=== PATIENT | male | born 1960 | race Caucasian/White ===

== ENCOUNTER 2016-05-14 14:35 | Inpatient (IN) ==
[2016-05-14 16:00] LABS: Basophils # 0.1 K/mcL (0.0-0.2); Basophils % 0.9 %; Eosinophils # 0.1 K/mcL (0.0-0.6); Eosinophils % 1.6 %; Hematocrit 43.7 % (37.5-50.1); Hemoglobin 15.6 g/dL (12.9-16.9); Immature Granulocytes % 1.9 % (0-4); Lymphocytes # 1.4 K/mcL (0.6-4.6); Mean Corpuscular HGB Conc 35.7 g/dL (31.6-35.5); Mean Corpuscular Hemoglobin 29.1 pg (28.0-33.3); Mean Corpuscular Volume 81.5 fL (83.0-100.0); Mean Platelet Volume 10.6 fL (9.4-12.4); Monocytes # 0.5 K/mcL (0.0-1.3); Monocytes % 7.1 %; Neutrophils # 4.2 K/mcL (1.6-8.9); Platelet Count 333 K/mcL (140-400); Red Blood Count 5.36 M/mcL (4.19-5.50); Red Cell Distribution Width 12.9 % (11.5-14.5); Segmented Neutrophils % 66.5 %
[2016-05-14 16:06] LABS: INR 0.9; Prothrombin Time 10.1 Seconds (9.4-12.1)
[2016-05-14 16:07] LABS: Activated Partial Thrombo Time 29.8 Seconds (26.0-36.0)
--- NOTE | 2016-05-14 16:08 | Emergency Department Note ---
Disposition Clinical Impression: Hyperglycemia, Intractable pain Chest pain Qualifiers: Chest pain type: other chest pain Qualified Code(s): R07.89 - Other chest pain ; R07.8 - Other chest pain Disposition: Admitted As Inpatient Condition: Good Referrals: NO,PCP [Primary Care Provider] - Chest Pain HPI - General Chief Complaint: ED Chest Pain Stated Complaint: CP, JEFF Time Seen by Provider: 05/14/16 15:36 Source: patient Mode of arrival: ambulatory Limitations: no limitations Vital Signs Reviewed: Yes Nursing Notes Reviewed: Yes - History of Present Illness Pt complaint: chest pain Onset (ago): day(s) (3) Duration: constant Onset: during rest Pain Location: right chest Severity scale (1-10): 8 Quality: aching Pain Radiation: none Improves with: nothing Worsens with: nothing Context: recent illness Associated symptoms: Reports: dyspnea, cough. Denies: nausea, vomiting, diaphoresis Treatments prior to arrival chest pain: none - Related Data Home Medications Medication Instructions Recorded Confirmed Aspirin Enteric Coated [Aspirin EC] 81 mg PO DAILY 05/14/16 05/14/16 Allergies Allergy/AdvReac Type Severity Reaction Status Date / Time No Known Allergies Allergy Verified 05/14/16 14:50 Chest Pain PMH - Past Medical History Medical history: Reports: diabetes, hypertension, other Psychiatric history: Reports: no psych history - Social History Smoking Status: Never smoker Alcohol use: Reports: none Drug use: Reports: none Physical Exam - General Limitations: no limitations General appearance: alert - Head Head exam: atraumatic, normocephalic, normal inspection - Eye Eye exam: Present: normal appearance, PERRL, EOMI - Expanded Eye Exam Pupils: Left: reactive - ENT ENT exam: normal exam, normal oropharynx, mucous membranes moist - Expanded ENT Exam External ear exam: Present: normal external inspection Mouth exam: Present: normal external inspection Teeth exam: Present: normal inspection Throat exam: Present: normal inspection - Neck Neck exam: Present: normal inspection, full ROM, trachea midline - Chest Chest inspection: Present: normal inspection, symmetric chest wall rise - Respiratory Respiratory exam: Present: normal lung sounds bilaterally - Cardiovascular Cardiovascular exam: Present: regular rate, normal rhythm, normal heart sounds - Abdominal Exam Abdominal exam: Present: soft, Non-Tender. Absent: tenderness, distention, guarding, rebound, rigidity - Extremities Exam Extremities exam: Present: normal inspection, full ROM. Absent: tenderness, pedal edema - Expanded Upper Extremity Exam Shoulder exam: Present: normal inspection, full ROM Arm exam: Present: normal inspection, full ROM Elbow exam: Present: normal inspection, full ROM Forearm/Wrist exam: Present: normal inspection, full ROM Hand exam: Present: normal inspection, full ROM Vascular exam: Normal: capillary refill, radial pulse - Expanded Lower Extremity Exam Hip/Pelvis exam: Present: normal inspection, full ROM Upper leg exam: Present: normal inspection, full ROM Knee exam: Present: normal inspection, full ROM Lower leg exam: Present: normal inspection, full ROM Ankle exam: Present: normal inspection, full ROM Foot/toe exam: Present: normal inspection, full ROM Neurovascular/Tendon exam: Absent: motor deficit, sensory deficit, tendon deficit - Back Exam Back exam: Present: normal inspection, full ROM. Absent: tenderness - Neurological Exam Neurological exam: Present: alert, oriented X3 - Expanded Neurological Exam Patient oriented to: Present: person, place, time Coma Scale Eye Opening: Spontaneous Coma Scale Motor Response: Obeys Commands Coma Scale Verbal Response: Oriented Coma Scale Total: 15 - Psychiatric Psychiatric exam: Present: normal affect, normal mood - Skin Skin exam: Present: warm, dry, intact, normal color Course Vital Signs Temperature 97.2 F L 05/14/16 14:47 Pulse Rate 98 05/14/16 14:47 Respiratory Rate 18 05/14/16 14:47 Blood Pressure 153/109 05/14/16 14:47 O2 Sat by Pulse Oximetry 99 05/14/16 14:47 Temperature 97.2 F L 05/14/16 14:47 Pulse Rate 87 05/14/16 20:05 Respiratory Rate 16 05/14/16 20:05 Blood Pressure 128/78 05/14/16 20:05 O2 Sat by Pulse Oximetry 97 05/14/16 20:05 Oxygen Delivery Oxygen Delivery Room Air Chest Pain - MDM Narrative Medical decision making narrative: We did an extensive workup on the patient he has no signs of herpes zoster, negative CTA of the chest and abdomen, he still have an intense right sided chest pain with uncontrolled diabetes. We will place him on observation status continue to hydrate him we will start insulin here to control his blood sugar he will be admitted to the hospitalist service - Differential Diagnosis Likely: pneumothorax, stable angina, atypical chest pain, st elevation myocardial infraction, costalchondritis, chest pain - Medical Records Medical records reviewed: Yes I reviewed the patient's medical records. - Lab Data Lab results reviewed: Yes I reviewed the patient's lab results. Result diagrams: 05/14/16 15:52 05/14/16 15:52 Lab Results 05/14/16 05/14/16 05/14/16 Range/Units 15:52 15:52 15:52 WBC (4.3-11.1) K/mcL RBC (4.19-5.50) M/mcL Hgb (12.9-16.9) g/dL Hct (37.5-50.1) % MCV (83.0-100.0) fL MCH (28.0-33.3) pg MCHC (31.6-35.5) g/dL RDW (11.5-14.5) % Plt Count (140-400) K/mcL MPV (9.4-12.4) fL Immature Gran % (0-4) % Seg Neutrophils % % Lymphocytes % % Monocytes % % Eosinophils % % Basophils % % Neutrophils # (1.6-8.9) K/mcL Lymphocytes # (0.6-4.6) K/mcL Monocytes # (0.0-1.3) K/mcL Eosinophils # (0.0-0.6) K/mcL Basophils # (0.0-0.2) K/mcL PT 10.1 (9.4-12.1) Seconds INR 0.9 APTT 29.8 (26.0-36.0) Seconds VBG pH (7.32-7.42) pH Units VBG pCO2 (41-51) mmHg VBG pO2 (25-40) mmHg VBG HCO3 (21-27) mEq/L Sodium (136-145) mEq/L Potassium (3.5-4.5) mEq/L Chloride (98-109) mEq/L Carbon Dioxide (19-29) mEq/L BUN (8-26) mg/dL Creatinine (0.72-1.25) mg/dL Est GFR ( Amer) (> 60) Est GFR (Non-Af Amer) (> 60) BUN/Creatinine Ratio (6-26) Glucose (70-99) mg/dL Est Mean Plasma Glucose mg/dl Hemoglobin A1c ( - 5.6) % Calculated Osmolality (280-300) Calcium (8.6-10.8) mg/dL Total Bilirubin 0.6 (0.2-1.2) mg/dL Direct Bilirubin 0.2 (0.0-0.5) mg/dL Indirect Bilirubin 0.4 (0.0-1.2) mg/dL AST 93 H (5-34) Units/L ALT 123 H (0-55) Units/L Alkaline Phosphatase 154 H (38-126) Units/L Troponin I (0-0.03) ng/mL B-Natriuretic Peptide 21 (0-100) pg/mL Serum Total Protein 7.2 (6.0-8.3) g/dL Albumin 3.5 (3.5-5.0) g/dL Globulin 3.7 H (2.4-3.5) g/dL Albumin/Globulin Ratio 0.9 L (1.1-2.2) Lipase (8-78) Units/L Beta-Hydroxybutyric Acd (0.02-0.27) mmol/L 05/14/16 05/14/16 05/14/16 Range/Units 15:52 15:52 15:52 WBC 6.4 (4.3-11.1) K/mcL RBC 5.36 (4.19-5.50) M/mcL Hgb 15.6 (12.9-16.9) g/dL Hct 43.7 (37.5-50.1) % MCV 81.5 L (83.0-100.0) fL MCH 29.1 (28.0-33.3) pg MCHC 35.7 H (31.6-35.5) g/dL RDW 12.9 (11.5-14.5) % Plt Count 333 (140-400) K/mcL MPV 10.6 (9.4-12.4) fL Immature Gran % 1.9 (0-4) % Seg Neutrophils % 66.5 % Lymphocytes % 22.0 % Monocytes % 7.1 % Eosinophils % 1.6 % Basophils % 0.9 % Neutrophils # 4.2 (1.6-8.9) K/mcL Lymphocytes # 1.4 (0.6-4.6) K/mcL Monocytes # 0.5 (0.0-1.3) K/mcL Eosinophils # 0.1 (0.0-0.6) K/mcL Basophils # 0.1 (0.0-0.2) K/mcL PT (9.4-12.1) Seconds INR APTT (26.0-36.0) Seconds VBG pH (7.32-7.42) pH Units VBG pCO2 (41-51) mmHg VBG pO2 (25-40) mmHg VBG HCO3 (21-27) mEq/L Sodium 135 L (136-145) mEq/L Potassium 4.3 (3.5-4.5) mEq/L Chloride 103 (98-109) mEq/L Carbon Dioxide 22 (19-29) mEq/L BUN 13 (8-26) mg/dL Creatinine 0.90 (0.72-1.25) mg/dL Est GFR ( Amer) > 60 (> 60) Est GFR (Non-Af Amer) > 60 (> 60) BUN/Creatinine Ratio 14 (6-26) Glucose 357 H (70-99) mg/dL Est Mean Plasma Glucose mg/dl Hemoglobin A1c ( - 5.6) % Calculated Osmolality 294 (280-300) Calcium 9.3 (8.6-10.8) mg/dL Total Bilirubin (0.2-1.2) mg/dL Direct Bilirubin (0.0-0.5) mg/dL Indirect Bilirubin (0.0-1.2) mg/dL AST (5-34) Units/L ALT (0-55) Units/L Alkaline Phosphatase (38-126) Units/L Troponin I 0.01 (0-0.03) ng/mL B-Natriuretic Peptide (0-100) pg/mL Serum Total Protein (6.0-8.3) g/dL Albumin (3.5-5.0) g/dL Globulin (2.4-3.5) g/dL Albumin/Globulin Ratio (1.1-2.2) Lipase (8-78) Units/L Beta-Hydroxybutyric Acd (0.02-0.27) mmol/L 05/14/16 05/14/16 05/14/16 Range/Units 15:52 16:25 20:07 WBC (4.3-11.1) K/mcL RBC (4.19-5.50) M/mcL Hgb (12.9-16.9) g/dL Hct (37.5-50.1) % MCV (83.0-100.0) fL MCH (28.0-33.3) pg MCHC (31.6-35.5) g/dL RDW (11.5-14.5) % Plt Count (140-400) K/mcL MPV (9.4-12.4) fL Immature Gran % (0-4) % Seg Neutrophils % % Lymphocytes % % Monocytes % % Eosinophils % % Basophils % % Neutrophils # (1.6-8.9) K/mcL Lymphocytes # (0.6-4.6) K/mcL Monocytes # (0.0-1.3) K/mcL Eosinophils # (0.0-0.6) K/mcL Basophils # (0.0-0.2) K/mcL PT (9.4-12.1) Seconds INR APTT (26.0-36.0) Seconds VBG pH 7.35 (7.32-7.42) pH Units VBG pCO2 41 (41-51) mmHg VBG pO2 87 H (25-40) mmHg VBG HCO3 22.6 (21-27) mEq/L Sodium (136-145) mEq/L Potassium (3.5-4.5) mEq/L Chloride (98-109) mEq/L Carbon Dioxide (19-29) mEq/L BUN (8-26) mg/dL Creatinine (0.72-1.25) mg/dL Est GFR ( Amer) (> 60) Est GFR (Non-Af Amer) (> 60) BUN/Creatinine Ratio (6-26) Glucose (70-99) mg/dL Est Mean Plasma Glucose > 355 mg/dl Hemoglobin A1c >= 14.1 H ( - 5.6) % Calculated Osmolality (280-300) Calcium (8.6-10.8) mg/dL Total Bilirubin (0.2-1.2) mg/dL Direct Bilirubin (0.0-0.5) mg/dL Indirect Bilirubin (0.0-1.2) mg/dL AST (5-34) Units/L ALT (0-55) Units/L Alkaline Phosphatase (38-126) Units/L Troponin I (0-0.03) ng/mL B-Natriuretic Peptide (0-100) pg/mL Serum Total Protein (6.0-8.3) g/dL Albumin (3.5-5.0) g/dL Globulin (2.4-3.5) g/dL Albumin/Globulin Ratio (1.1-2.2) Lipase 52 (8-78) Units/L Beta-Hydroxybutyric Acd 1.41 H (0.02-0.27) mmol/L - Radiology Data Radiology results reviewed: Yes I reviewed the patient's radiology results.
[2016-05-14] MEDS ORDERED: Ondansetron 4 MG/2 ML VIAL IV ONE ×2 (16:10→18:12)
[2016-05-14] MEDS ORDERED: *HR* HYDROmorphone (PF) 1 MG/ML SYRINGE IV ONE ×2 (16:10→18:12)
[2016-05-14 16:30] LABS: BUN/Creatinine Ratio 14 (6-26); Blood Urea Nitrogen 13 mg/dL (8-26); Calcium 9.3 mg/dL (8.6-10.8); Carbon Dioxide 22 mEq/L (19-29); Chloride 103 mEq/L (98-109); Glucose 357 mg/dL (70-99); Osmolality,Calculated 294 (280-300); Potassium 4.3 mEq/L (3.5-4.5); Sodium 135 mEq/L (136-145); eGFR For African Americans > 60 (> 60); eGFR For Non-African Americans > 60 (> 60)
[2016-05-14 16:32] LABS: Albumin 3.5 g/dL (3.5-5.0); Albumin/Globulin Ratio 0.9 (1.1-2.2); Bilirubin,Direct 0.2 mg/dL (0.0-0.5); Bilirubin,Indirect 0.4 mg/dL (0.0-1.2); Bilirubin,Total 0.6 mg/dL (0.2-1.2); Globulin 3.7 g/dL (2.4-3.5); Total Protein 7.2 g/dL (6.0-8.3)
[2016-05-14 17:48] LABS: Estimated Average Glucose > 355 mg/dl; Hemoglobin A1C >= 14.1 %
[2016-05-14] MEDS ORDERED: Ketorolac 30 MG/ML VIAL IVP ONE (18:12)
[2016-05-14] MEDS ORDERED: 0.9 % Sodium Chloride 1,000 ML IVC ONE ×2 (18:16→19:40)
[2016-05-14] MEDS ORDERED: Insulin LISPRO 300 UNITS/3 ML VIAL SQ STA (19:41)
[2016-05-14 19:57] LABS: Beta-Hydroxybutyric Acid 1.41 mmol/L (0.02-0.27)
[2016-05-14 20:13] LABS: VBG HCO3 22.6 mEq/L (21-27); VBG PH 7.35 pH Units (7.32-7.42)
[2016-05-14 21:02] LABS: Bilirubin,Urine Small (Negative); Blood,Urine Negative (Negative); Clarity,Urine Clear (Clear); Color,Urine Yellow (Yellow); Glucose,Urine (UA) >=1000 mg/dL (Normal); Ketones,Urine 40 mg/dL (Negative); Leukocyte Esterase,Urine Negative (Negative); Nitrite,Urine Negative (Negative); Protein,Urine Negative (Neg-Trace); Urobilinogen,Urine Normal (Normal)
[2016-05-14 21:03] LABS: Specific Gravity,Urine >= 1.099 (1.010-1.025)
[2016-05-14] MEDS ORDERED: *HR* Promethazine 25 MG/ML VIAL IVP ONE (21:14)
[2016-05-14] MEDS ORDERED: *HR* HYDROmorphone (PF) 1 MG/ML SYRINGE IVP ONE (21:14)
[2016-05-14] MEDS ORDERED: Ondansetron 4 MG/2 ML VIAL IVP PRN (21:33)
[2016-05-14] MEDS ORDERED: Ketorolac 30 MG/ML VIAL IVP PRN (21:33)
[2016-05-14] MEDS ORDERED: Naloxone 0.4 MG/ML INJ IVP PRN (21:33)
[2016-05-14] MEDS ORDERED: D5% in Water 1,000 ML IV PRN (21:51)
[2016-05-14] MEDS ORDERED: *HR* Dextrose 50 % in Water (Syg) 50 ML SYRINGE IVP PRN (21:51)
[2016-05-14] MEDS ORDERED: Dextrose Gel 15 GM PO PRN ×2 (21:51)
--- NOTE | 2016-05-14 22:05 | Internal Med History&Physical ---
<Renae Garay - Last Filed: 05/14/16 22:47> Date of Encounter: 05/14/16 Time of Encounter: 21:58 Assessment and Plan (1) Uncontrolled type 2 diabetes mellitus Current visit: Yes Status: Acute Patient reports he was diagnosed with type 2 diabetes, and was previously on Metformin, but stopped taking it on his own about 6 months ago. Patient's glucose was 357 and Hgb A1c was 14.1. Patient reports thirst and frequent urination. Patient with elevated ketones, but is not acidotic. He received 2L of fluid in ED. diabetic diet Check blood sugars Q4hr Sliding scale correction dose insulin Q4hr 0.9NS at 150mL/hr Can de-escalate timing of blood sugars and insulin to ACHS once blood sugar drops below 200. family life educator consulted. Patient will need to establish with a PCP for outpatient management of his diabetes. Qualifiers: Diabetes mellitus complication status: with hyperglycemia Diabetes mellitus long term care social worker insulin use: without jail use Qualified Code(s): E11.65 - Type 2 diabetes mellitus with hyperglycemia (2) Chest pain Current visit: Yes Status: Acute Patient presented with right sided chest pain described as constant, sharp and deep and located on right side of chest all the way around and through to his right back below his should blade. Onset was and has been worsening. There is no erythema or rash. Patient is tender to palpation on chest wall. Patient reports recent URI a few weeks ago, but states he was not coughing. CXR shows no acute abnormality CTA was negative for PE or acute abnormality, shows prominent calcified granuloma in superior right lobe. CT abdomen shows no acute abnormality. Differential includes costochondritis, pleurisy, hepatitis, low suspicion for ACS, but will rule out with serial troponins Pain control with PRN norco and dilaudid PRN zofran for nausea Qualifiers: Chest pain type: other chest pain Qualified Code(s): R07.89 - Other chest pain; R07.8 - Other chest pain (3) LFT elevation Current visit: Yes Status: Acute Patient with right chest pain, reporting yellow colored stool today. He has history of cholecystectomy, history of pancreatitis. LFTs found to be elevated with AST 93, ALT 123, and alk phos 154. Ptient not tender in RUQ on palpation. Will get hepatitis panel. (4) DVT prophylaxis Current visit: Yes Status: Acute Ambulate TID anti-embolic stockings Lovenox 40mg SQ daily Internal Medicine - H&P: HPI Chief complaint: right sided pain Admitted From: Emergency Dept Plans for Post Hospital Care: Home History of present illness: Mr. Gonzales is a 56 year old male with hypertension and diabetes who presented to the emergency department today with reports of right-sided pain. Pain is located from his right flank around to his right chest at approximately the nipple line. He describes the pain as sharp, constant, deep pain. He reports he had some Tramadol at home which she took over the weekend and seemed to relieve his pain. He reports his pain is also lessened by stretching his right arm over his head. Pain has progressively worsened since its onset. He denies any palpitations, headache, abdominal pain, diarrhea. He does report some nausea and some shortness of breath today. He also reports a yellow colored stool today. He denies any lightheadedness, dizziness, faint. Evaluation in the emergency department included chest x-ray which showed no acute abnormality. CTA showed no pulmonary embolism or acute abnormality, it showed a prominent calcified granuloma in the superior right lower lobe. CT of the abdomen showed no acute abnormality. Patient was noted to have elevated glucose of 357, A1c was measured at 14.1. Patient reported he was previously on metformin but stopped it 6 months ago. Troponin was negative at 0.01, BNP was negative at 21. LFTs were elevated with AST of 93, ALT of 123 and alkaline phosphatase of 154. He did have elevated ketones, blood was not acidotic. On exam, patient alert and oriented, in no acute distress. Heart had regular rate and rhythm, lungs are clear to auscultation bilaterally. Patient was tender to palpation in anterior lateral and posterior chest wall on the right. Abdomen was nontender with positive bowel sounds. Past Med Surg Social Fam HX - Past Medical History Medical history: diabetes, hypertension, other Psychiatric history: no psych history - Past Surgical History Surgical History: cholecystectomy - Social History Smoking Status: Never smoker Smokeless Tobacco Status: No Alcohol use: none Drug use: none - Family History Mother Living Status: Hx Family Cardiac Disorders: Yes Father Living Status: Hx Family Endocrine Disorder: Yes (diabetes) Internal Medicine - H&P: Meds Aspirin Enteric Coated [Aspirin EC] 81 mg PO DAILY 05/14/16 [History] Allergies No Known Allergies Allergy (Verified 05/14/16 14:50) All Systems PM: A 10-system review of systems was performed and is negative for pertinent findings except as documented above in the HPI. - Constitutional Constitutional: no chills, no fever(s), no night sweats - EENT Eyes: no change in vision, no discharge, no pain, no photophobia Ears: no ear discharge, no ear pain, no tinnitus Nose, mouth and throat: no dysphagia, no nasal discharge, no neck pain, no sore throat - Cardiovascular Cardiovascular ROS IM: chest pain (right sided), dyspnea, no diaphoresis, no lightheadedness, no palpitations, no syncope - Respiratory Respiratory: dyspnea, no cough, no wheezing, no excessive phlegm production - Gastrointestinal Gastrointestinal: change in stool character (yellow stool today), nausea, no abdominal pain, no diarrhea, no hematemesis, no hematochezia, no melena, no vomiting - Musculoskeletal Musculoskeletal ROS IM: no numbness, no tingling - Integumentary Integumentary IM: no rash, no unusual bruising - Neurological Neurological ROS: no confusion, no convulsions, no focal weakness, no numbness, no tingling, no tremor(s) - Hematologic/Lymphatic Hematologic/Lymphatic: no easy bruising - Constitutional Vitals: Temp Pulse Resp BP Pulse Ox 97.2 F L 95 18 0/0 100 05/14/16 14:47 05/14/16 21:26 05/14/16 21:34 05/14/16 21:34 05/14/16 21:26 General appearance: Present: A&O X 3, no acute distress - Head Head exam: Present: atraumatic, normocephalic - Eye Eye exam: Present: PERRL, conjuntiva pink, sclera anicteric Pupils: Present: PERRL - Neck Neck exam general surgery: Present: supple, trachea midline. Absent: lymphadenopathy - Respiratory Respiratory exam: Present: chest wall tenderness (right anterior, lateral and flank), CTAB. Absent: accessory muscle use, rales, rhonchi, wheezes - Cardiovascular Cardiovascular exam: Present: RRR, +S1, +S2. Absent: diastolic murmur, gallop, rubs, systolic murmur - GI/Abdominal GI/Abdominal exam: Present: normal bowel sounds, soft, no peritoneal signs. Absent: distended, tenderness - Extremities Exam Extremities exam: Present: warm, radial pulses palpable and symetrical. Absent : calf tenderness, cyanotic, pedal edema - Neurological Exam Neurological exam: Present: CN II-XII intact, oriented X3, no focal deficits. Absent: facial droop, speech deficit - Skin Skin exam: Present: dry, intact Internal Med - H&P Results - Labs CBC & Chem 7: 05/14/16 15:52 05/14/16 15:52 Labs: Urine 05/14/16 Range/Units 20:56 Urine Color Yellow (Yellow) Urine Clarity Clear (Clear) Urine pH 5.0 (5.0-8.0) pH Units Ur Specific [place] >= 1.099 H (1.010-1.025) Urine Protein Negative (Neg-Trace) mg/dL Urine Glucose (UA) >=1000 H (Normal) mg/dL All Lab Results (24 Hours) 05/14/16 05/14/16 05/14/16 Range/Units 15:52 15:52 15:52 WBC (4.3-11.1) K/mcL RBC (4.19-5.50) M/mcL Hgb (12.9-16.9) g/dL Hct (37.5-50.1) % MCV (83.0-100.0) fL MCH (28.0-33.3) pg MCHC (31.6-35.5) g/dL RDW (11.5-14.5) % Plt Count (140-400) K/mcL MPV (9.4-12.4) fL Immature Gran % (0-4) % Seg Neutrophils % % Lymphocytes % % Monocytes % % Eosinophils % % Basophils % % Neutrophils # (1.6-8.9) K/mcL Lymphocytes # (0.6-4.6) K/mcL Monocytes # (0.0-1.3) K/mcL Eosinophils # (0.0-0.6) K/mcL Basophils # (0.0-0.2) K/mcL PT 10.1 (9.4-12.1) Seconds INR 0.9 APTT 29.8 (26.0-36.0) Seconds VBG pH (7.32-7.42) pH Units VBG pCO2 (41-51) mmHg VBG pO2 (25-40) mmHg VBG HCO3 (21-27) mEq/L Sodium (136-145) mEq/L Potassium (3.5-4.5) mEq/L Chloride (98-109) mEq/L Carbon Dioxide (19-29) mEq/L BUN (8-26) mg/dL Creatinine (0.72-1.25) mg/dL Est GFR ( Amer) (> 60) Est GFR (Non-Af Amer) (> 60) BUN/Creatinine Ratio (6-26) Glucose (70-99) mg/dL Est Mean Plasma Glucose mg/dl Hemoglobin A1c ( - 5.6) % Calculated Osmolality (280-300) Calcium (8.6-10.8) mg/dL Total Bilirubin 0.6 (0.2-1.2) mg/dL Direct Bilirubin 0.2 (0.0-0.5) mg/dL Indirect Bilirubin 0.4 (0.0-1.2) mg/dL AST 93 H (5-34) Units/L ALT 123 H (0-55) Units/L Alkaline Phosphatase 154 H (38-126) Units/L Troponin I (0-0.03) ng/mL B-Natriuretic Peptide 21 (0-100) pg/mL Serum Total Protein 7.2 (6.0-8.3) g/dL Albumin 3.5 (3.5-5.0) g/dL Globulin 3.7 H (2.4-3.5) g/dL Albumin/Globulin Ratio 0.9 L (1.1-2.2) Lipase (8-78) Units/L Beta-Hydroxybutyric Acd (0.02-0.27) mmol/L Urine Color (Yellow) Urine Clarity (Clear) Urine pH (5.0-8.0) pH Units Ur Specific [place] (1.010-1.025) Urine Protein (Neg-Trace) mg/dL Urine Glucose (UA) (Normal) mg/dL Urine Ketones (Negative) mg/dL Urine Blood (Negative) Urine Nitrite (Negative) Urine Bilirubin (Negative) Urine Urobilinogen (Normal) mg/dL Ur Leukocyte Esterase (Negative) Ur Culture Indicated? (NO) 02/27/17 02/27/17 02/27/17 Range/Units 15:52 15:52 15:52 WBC 6.4 (4.3-11.1) K/mcL RBC 5.36 (4.19-5.50) M/mcL Hgb 15.6 (12.9-16.9) g/dL Hct 43.7 (37.5-50.1) % MCV 81.5 L (83.0-100.0) fL MCH 29.1 (28.0-33.3) pg MCHC 35.7 H (31.6-35.5) g/dL RDW 12.9 (11.5-14.5) % Plt Count 333 (140-400) K/mcL MPV 10.6 (9.4-12.4) fL Immature Gran % 1.9 (0-4) % Seg Neutrophils % 66.5 % Lymphocytes % 22.0 % Monocytes % 7.1 % Eosinophils % 1.6 % Basophils % 0.9 % Neutrophils # 4.2 (1.6-8.9) K/mcL Lymphocytes # 1.4 (0.6-4.6) K/mcL Monocytes # 0.5 (0.0-1.3) K/mcL Eosinophils # 0.1 (0.0-0.6) K/mcL Basophils # 0.1 (0.0-0.2) K/mcL PT (9.4-12.1) Seconds INR APTT (26.0-36.0) Seconds VBG pH (7.32-7.42) pH Units VBG pCO2 (41-51) mmHg VBG pO2 (25-40) mmHg VBG HCO3 (21-27) mEq/L Sodium 135 L (136-145) mEq/L Potassium 4.3 (3.5-4.5) mEq/L Chloride 103 (98-109) mEq/L Carbon Dioxide 22 (19-29) mEq/L BUN 13 (8-26) mg/dL Creatinine 0.90 (0.72-1.25) mg/dL Est GFR ( Amer) > 60 (> 60) Est GFR (Non-Af Amer) > 60 (> 60) BUN/Creatinine Ratio 14 (6-26) Glucose 357 H (70-99) mg/dL Est Mean Plasma Glucose mg/dl Hemoglobin A1c ( - 5.6) % Calculated Osmolality 294 (280-300) Calcium 9.3 (8.6-10.8) mg/dL Total Bilirubin (0.2-1.2) mg/dL Direct Bilirubin (0.0-0.5) mg/dL Indirect Bilirubin (0.0-1.2) mg/dL AST (5-34) Units/L ALT (0-55) Units/L Alkaline Phosphatase (38-126) Units/L Troponin I 0.01 (0-0.03) ng/mL B-Natriuretic Peptide (0-100) pg/mL Serum Total Protein (6.0-8.3) g/dL Albumin (3.5-5.0) g/dL Globulin (2.4-3.5) g/dL Albumin/Globulin Ratio (1.1-2.2) Lipase (8-78) Units/L Beta-Hydroxybutyric Acd (0.02-0.27) mmol/L Urine Color (Yellow) Urine Clarity (Clear) Urine pH (5.0-8.0) pH Units Ur Specific [place] (1.010-1.025) Urine Protein (Neg-Trace) mg/dL Urine Glucose (UA) (Normal) mg/dL Urine Ketones (Negative) mg/dL Urine Blood (Negative) Urine Nitrite (Negative) Urine Bilirubin (Negative) Urine Urobilinogen (Normal) mg/dL Ur Leukocyte Esterase (Negative) Ur Culture Indicated? (NO) 05/14/16 05/14/16 05/14/16 Range/Units 15:52 16:25 20:07 WBC (4.3-11.1) K/mcL RBC (4.19-5.50) M/mcL Hgb (12.9-16.9) g/dL Hct (37.5-50.1) % MCV (83.0-100.0) fL MCH (28.0-33.3) pg MCHC (31.6-35.5) g/dL RDW (11.5-14.5) % Plt Count (140-400) K/mcL MPV (9.4-12.4) fL Immature Gran % (0-4) % Seg Neutrophils % % Lymphocytes % % Monocytes % % Eosinophils % % Basophils % % Neutrophils # (1.6-8.9) K/mcL Lymphocytes # (0.6-4.6) K/mcL Monocytes # (0.0-1.3) K/mcL Eosinophils # (0.0-0.6) K/mcL Basophils # (0.0-0.2) K/mcL PT (9.4-12.1) Seconds INR APTT (26.0-36.0) Seconds VBG pH 7.35 (7.32-7.42) pH Units VBG pCO2 41 (41-51) mmHg VBG pO2 87 H (25-40) mmHg VBG HCO3 22.6 (21-27) mEq/L Sodium (136-145) mEq/L Potassium (3.5-4.5) mEq/L Chloride (98-109) mEq/L Carbon Dioxide (19-29) mEq/L BUN (8-26) mg/dL Creatinine (0.72-1.25) mg/dL Est GFR ( Amer) (> 60) Est GFR (Non-Af Amer) (> 60) BUN/Creatinine Ratio (6-26) Glucose (70-99) mg/dL Est Mean Plasma Glucose > 355 mg/dl Hemoglobin A1c >= 14.1 H ( - 5.6) % Calculated Osmolality (280-300) Calcium (8.6-10.8) mg/dL Total Bilirubin (0.2-1.2) mg/dL Direct Bilirubin (0.0-0.5) mg/dL Indirect Bilirubin (0.0-1.2) mg/dL AST (5-34) Units/L ALT (0-55) Units/L Alkaline Phosphatase (38-126) Units/L Troponin I (0-0.03) ng/mL B-Natriuretic Peptide (0-100) pg/mL Serum Total Protein (6.0-8.3) g/dL Albumin (3.5-5.0) g/dL Globulin (2.4-3.5) g/dL Albumin/Globulin Ratio (1.1-2.2) Lipase 52 (8-78) Units/L Beta-Hydroxybutyric Acd 1.41 H (0.02-0.27) mmol/L Urine Color (Yellow) Urine Clarity (Clear) Urine pH (5.0-8.0) pH Units Ur Specific [place] (1.010-1.025) Urine Protein (Neg-Trace) mg/dL Urine Glucose (UA) (Normal) mg/dL Urine Ketones (Negative) mg/dL Urine Blood (Negative) Urine Nitrite (Negative) Urine Bilirubin (Negative) Urine Urobilinogen (Normal) mg/dL Ur Leukocyte Esterase (Negative) Ur Culture Indicated? (NO) 05/14/16 Range/Units 20:56 WBC (4.3-11.1) K/mcL RBC (4.19-5.50) M/mcL Hgb (12.9-16.9) g/dL Hct (37.5-50.1) % MCV (83.0-100.0) fL MCH (28.0-33.3) pg MCHC (31.6-35.5) g/dL RDW (11.5-14.5) % Plt Count (140-400) K/mcL MPV (9.4-12.4) fL Immature Gran % (0-4) % Seg Neutrophils % % Lymphocytes % % Monocytes % % Eosinophils % % Basophils % % Neutrophils # (1.6-8.9) K/mcL Lymphocytes # (0.6-4.6) K/mcL Monocytes # (0.0-1.3) K/mcL Eosinophils # (0.0-0.6) K/mcL Basophils # (0.0-0.2) K/mcL PT (9.4-12.1) Seconds INR APTT (26.0-36.0) Seconds VBG pH (7.32-7.42) pH Units VBG pCO2 (41-51) mmHg VBG pO2 (25-40) mmHg VBG HCO3 (21-27) mEq/L Sodium (136-145) mEq/L Potassium (3.5-4.5) mEq/L Chloride (98-109) mEq/L Carbon Dioxide (19-29) mEq/L BUN (8-26) mg/dL Creatinine (0.72-1.25) mg/dL Est GFR ( Amer) (> 60) Est GFR (Non-Af Amer) (> 60) BUN/Creatinine Ratio (6-26) Glucose (70-99) mg/dL Est Mean Plasma Glucose mg/dl Hemoglobin A1c ( - 5.6) % Calculated Osmolality (280-300) Calcium (8.6-10.8) mg/dL Total Bilirubin (0.2-1.2) mg/dL Direct Bilirubin (0.0-0.5) mg/dL Indirect Bilirubin (0.0-1.2) mg/dL AST (5-34) Units/L ALT (0-55) Units/L Alkaline Phosphatase (38-126) Units/L Troponin I (0-0.03) ng/mL B-Natriuretic Peptide (0-100) pg/mL Serum Total Protein (6.0-8.3) g/dL Albumin (3.5-5.0) g/dL Globulin (2.4-3.5) g/dL Albumin/Globulin Ratio (1.1-2.2) Lipase (8-78) Units/L Beta-Hydroxybutyric Acd (0.02-0.27) mmol/L Urine Color Yellow (Yellow) Urine Clarity Clear (Clear) Urine pH 5.0 (5.0-8.0) pH Units Ur Specific [place] >= 1.099 H (1.010-1.025) Urine Protein Negative (Neg-Trace) mg/dL Urine Glucose (UA) >=1000 H (Normal) mg/dL Urine Ketones 40 H (Negative) mg/dL Urine Blood Negative (Negative) Urine Nitrite Negative (Negative) Urine Bilirubin Small H (Negative) Urine Urobilinogen Normal (Normal) mg/dL Ur Leukocyte Esterase Negative (Negative) Ur Culture Indicated? NO (NO) <Buzz Garcia R - Last Filed: 05/15/16 04:51> Date of Encounter: 05/14/16 Internal Medicine - H&P: HPI History of present illness: Mr. Gonzales is a 56 year old male All Systems PM: A 10-system review of systems was performed and is negative for pertinent findings except as documented above in the HPI. - Constitutional Vitals: Temp Pulse Resp BP Pulse Ox 97.8 F 83 14 157/85 98 05/15/16 03:43 05/15/16 03:43 05/15/16 03:43 05/15/16 03:43 05/15/16 03:43 Internal Med - H&P Results - Labs CBC & Chem 7: 05/14/16 15:52 05/14/16 15:52 Labs: Cardiac Enzymes 05/14/16 Range/Units 21:55 Troponin I 0.01 (0-0.03) ng/mL Urine 05/14/16 Range/Units 20:56 Urine Color Yellow (Yellow) Urine Clarity Clear (Clear) Urine pH 5.0 (5.0-8.0) pH Units Ur Specific [place] >= 1.099 H (1.010-1.025) Urine Protein Negative (Neg-Trace) mg/dL Urine Glucose (UA) >=1000 H (Normal) mg/dL - Attending Attestation I examined this patient and my medical decision-making was reviewed with the FRAME CHANGER/ Advanced Practice Nurse. I agree with the documented findings, disposition and treatment plan as described except to the extent set forth below. 56-year-old male with history of diabetes and hypertension, presents with four- day history of worsening right chest pain, going from the back to the front. been severe tonight and hence presented to the er. Worse with deep breath. No questions, cough or expectoration. Had yellow colored stool today. Labs showed a transaminitis, hyperglycemia with hemoglobin A1c of 14.1%. Urinalysis is negative for leukocyte esterase and nitrates. CTA showed no pulmonary embolism or acute abnormality, it showed a prominent calcified granuloma in the superior right lower lobe. CT of the abdomen showed no acute abnormality. O/E: Lungs clear to auscultation. Abdomen soft and nontender. No skin rash on the right side of chest. A/P: - Transaminitis: check for viral hepatitis panel. Consider GI consult. - Right sided pleruritic chest pain: No e/o PE. Troponin negative. - Uncontrolled DM with A1C of 14.1%. oral hypoglycemics versus insulin at discharge.
[2016-05-14] MEDS: 0.9 % Sodium Chloride 1,000 ML IVC SCH (23:09)
[2016-05-14] MEDS: *HR* HYDROmorphone (PF) 1 MG/ML SYRINGE IVP PRN (23:09)
[2016-05-15] MEDS: Insulin LISPRO 300 UNITS/3 ML VIAL SQ SCH ×7 (00:05→20:58)
[2016-05-15] MEDS: *HR* HYDROcodone/Acet 5/325 mg TABLET PO PRN ×2 (02:11→08:14)
[2016-05-15] MEDS: *HR* HYDROmorphone (PF) 1 MG/ML SYRINGE IVP PRN ×4 (04:12→23:10)
[2016-05-15 04:51] LABS: Basophils % 0.5 %; Eosinophils # 0.1 K/mcL (0.0-0.6); Eosinophils % 0.9 %; Hematocrit 41.1 % (37.5-50.1); Hemoglobin 14.2 g/dL (12.9-16.9); Lymphocytes # 1.2 K/mcL (0.6-4.6); Lymphocytes % 21.4 %; Mean Corpuscular HGB Conc 34.5 g/dL (31.6-35.5); Mean Corpuscular Hemoglobin 28.7 pg (28.0-33.3); Mean Corpuscular Volume 83.2 fL (83.0-100.0); Mean Platelet Volume 10.4 fL (9.4-12.4); Monocytes # 0.6 K/mcL (0.0-1.3); Monocytes % 10.7 %; Neutrophils # 3.6 K/mcL (1.6-8.9); Platelet Count 300 K/mcL (140-400); Red Blood Count 4.94 M/mcL (4.19-5.50); Red Cell Distribution Width 13.2 % (11.5-14.5); Segmented Neutrophils % 64.5 %
[2016-05-15 05:06] LABS: BUN/Creatinine Ratio 20 (6-26); Blood Urea Nitrogen 15 mg/dL (8-26); Calcium 8.4 mg/dL (8.6-10.8); Carbon Dioxide 22 mEq/L (19-29); Chloride 106 mEq/L (98-109); Glucose 195 mg/dL (70-99); Osmolality,Calculated 292 (280-300); Potassium 3.6 mEq/L (3.5-4.5); Sodium 138 mEq/L (136-145); eGFR For African Americans > 60 (> 60); eGFR For Non-African Americans > 60 (> 60)
[2016-05-15 05:29] LABS: Hepatitis A Antibody IgM Nonreactive (Nonreactive); Hepatitis B Core IgM Nonreactive (Nonreactive); Hepatitis B Surface Antigen Nonreactive (Nonreactive); Hepatitis C Virus Antibody Nonreactive (Nonreactive)
[2016-05-15] MEDS: 0.9 % Sodium Chloride 1,000 ML IVC SCH ×3 (05:47→19:31)
[2016-05-15] MEDS: *HR* Enoxaparin 40 MG/0.4 ML SYRINGE SQ SCH (05:48)
[2016-05-15] MEDS: Aspirin Enteric Coated 81 MG Tablet PO SCH (08:14)
--- NOTE | 2016-05-15 09:40 | Internal Med Progress Note ---
Date of Encounter: 05/15/16 Time of Encounter: 08:45 - Assessment and plan (1) Chest pain Current Visit: Yes Status: Acute Assessment and plan: Patient complaining of severe right-sided chest pain radiating to his right upper back. Chest x-ray unremarkable. Chest CTA negative for acute processes. Abdominal CT negative. Urinalysis negative. Hepatitis panel negative. Mild transaminitis noted, will continue IV fluids and pain and nausea medication control. Chest pain is reproducible with palpation. Patient stating his pain feels similar to when he had acute pancreatitis many years ago. Troponins negative 3, low suspicion for ACS. ITS Impressions Chest X-Ray 05/14/16 15:37 IMPRESSION: No acute abnormality. D/ / Homer Betts MD / Homer Betts MD Interpreting Provider: Homer Betts MD Chest CTA 05/14/16 16:40 IMPRESSION: No evidence of pulmonary embolism or acute pulmonary abnormality. D/ / Fabio Carrillo MD / Fabio Carrillo MD Interpreting Provider: aFbio Carrillo MD Abdomen/Pelvis CT 05/14/16 18:16 IMPRESSION: No acute intra-abdominal or intrapelvic abnormality. Diverticulosis without evidence of diverticulitis. D/ / Luz Marina Adan MD / Luz Marina Adan MD Interpreting Provider: Luz Marina Adan MD (2) Intractable pain Current Visit: Yes Status: Acute (3) Transaminitis Current Visit: Yes Status: Acute (4) HTN (hypertension) Current Visit: Yes Status: Acute Assessment and plan: Suspect chronic, patient does not know if he was supposed to be on any medications for his hypertension, will initiate lisinopril and monitor (5) Noncompliance with medication regimen Current Visit: Yes Status: Acute Assessment and plan: Patient stating he stopped taking all of his medications approximately 6 months ago. He has not seen a primary care provider for at least 8 months. He states he had heard bad things about his medications so he stopped taking them. He is also unintentionally lost 20 pounds over the past several months. (6) DVT prophylaxis Current Visit: Yes Status: Acute Assessment and plan: Subcutaneous Lovenox (7) Uncontrolled type 2 diabetes mellitus Current Visit: Yes Status: Chronic Assessment and plan: patient stating he was on Metformin, but had heard some bad things about it, so he stopped taking it approximately 6 months ago. A1C>14.1%. DM educator onboard. He does not currently have a PCP. May need to initiate insulin, will continue to educate him and decide plan of care over next several days. - Subjective Interval history: Patient seen and examined. On examination, patient resting supine in bed. Patient complaining of severe pain to the right side of his chest radiating to his right upper back. Patient is also endorsing severe nausea but no vomiting. His is concerned as the patient stopped taking all of his medications on his own 6 months ago and has lost 20 pounds since that time. - Constitutional Vitals: Temp Pulse Resp BP Pulse Ox 97.8 F 86 16 145/84 98 05/15/16 07:03 05/15/16 07:03 05/15/16 07:03 05/15/16 07:03 05/15/16 07:03 General appearance: Present: mild distress (2/2 pain), A&O X 3, no acute distress, answers questions appropriately - Head Head exam: Present: atraumatic, normocephalic - Eye Eye exam: Present: PERRL, conjuntiva pink, sclera anicteric Pupils: Present: PERRL - Neck Neck exam general surgery: Present: supple, trachea midline. Absent: lymphadenopathy - Respiratory Respiratory exam: Present: chest wall tenderness, decreased breath sounds ( Shallow breaths secondary to pain). Absent: accessory muscle use, rales, respiratory distress, rhonchi, wheezes - Cardiovascular Cardiovascular exam: Present: RRR, +S1, +S2. Absent: diastolic murmur, gallop, rubs, systolic murmur - GI/Abdominal GI/Abdominal exam: Present: normal bowel sounds, soft, tenderness (RUQ/ Epipgastric), no peritoneal signs. Absent: distended - Extremities Exam Extremities exam: Present: warm, radial pulses palpable and symetrical. Absent : calf tenderness, cyanotic, pedal edema - Neurological Exam Neurological exam: Present: alert, CN II-XII intact, oriented X3, no focal deficits, strengths equal and symetr throughout. Absent: pronater drift, facial droop, speech deficit - Skin Skin exam: Present: dry, intact, pallor, warm Internal Medicine: Result - Labs CBC & Chem 7: 05/15/16 04:06 05/15/16 04:06 Labs: Short CBC 05/15/16 Range/Units 04:06 WBC 5.5 (4.3-11.1) K/mcL Hgb 14.2 (12.9-16.9) g/dL Hct 41.1 (37.5-50.1) % Plt Count 300 (140-400) K/mcL Neutrophils # 3.6 (1.6-8.9) K/mcL BMP 05/15/16 04:06 Sodium 138 Potassium 3.6 Chloride 106 Carbon Dioxide 22 BUN 15 Creatinine 0.76 Glucose 195 H Calcium 8.4 L Cardiac Enzymes 05/14/16 05/15/16 Range/Units 21:55 04:06 Troponin I 0.01 0.01 (0-0.03) ng/mL Urine 05/14/16 Range/Units 20:56 Urine Color Yellow (Yellow) Urine Clarity Clear (Clear) Urine pH 5.0 (5.0-8.0) pH Units Ur Specific [place] >= 1.099 H (1.010-1.025) Urine Protein Negative (Neg-Trace) mg/dL Urine Glucose (UA) >=1000 H (Normal) mg/dL - ABG Interpretation ABG results: PT/INR, D-dimer PT 10.1 Seconds (9.4-12.1) 05/14/16 15:52 Consult Discharge Plan - Plan
[2016-05-15] MEDS: Ondansetron 4 MG/2 ML VIAL IVP PRN ×3 (12:31→23:10)
--- NOTE | 2016-05-15 16:18 | Electrocardiograph Report ---
[place] [id number] Test Date: 2016-05-14 Pat Name: Feliz Gonzales Department: 102 Room: 3B16 Gender: M [employer] Supervisor: : [id number] Requested By: Brendan Romeo Order Number: [id number] Reading MD: Kamar Alva Measurements Intervals [place] Rate: 80 P: 32 RI: 141 QRS: -12 QRSD: 85 T: 10 QT: 362 QTc: 398 Interpretive Statements SINUS RHYTHM Electronically Signed On 05-15-2016 16:16:40 EST by Kamar Alva
[2016-05-15] MEDS: *HR* Promethazine 25 MG/ML VIAL IVP PRN (19:31)
[2016-05-16] MEDS: *HR* Promethazine 25 MG/ML VIAL IVP PRN ×3 (03:33→20:42)
[2016-05-16] MEDS: *HR* HYDROmorphone (PF) 1 MG/ML SYRINGE IVP PRN ×5 (03:33→20:41)
[2016-05-16] MEDS: 0.9 % Sodium Chloride 1,000 ML IVC SCH ×3 (03:34→18:33)
[2016-05-16 05:36] LABS: Albumin 2.9 g/dL (3.5-5.0); Albumin/Globulin Ratio 0.9 (1.1-2.2); Bilirubin,Direct 0.4 mg/dL (0.0-0.5); Bilirubin,Indirect 0.5 mg/dL (0.0-1.2); Bilirubin,Total 0.9 mg/dL (0.2-1.2); Globulin 3.2 g/dL (2.4-3.5); Total Protein 6.1 g/dL (6.0-8.3)
[2016-05-16] MEDS: *HR* Enoxaparin 40 MG/0.4 ML SYRINGE SQ SCH (06:13)
[2016-05-16] MEDS: Ondansetron 4 MG/2 ML VIAL IVP PRN ×2 (07:51→17:36)
[2016-05-16] MEDS: Aspirin Enteric Coated 81 MG Tablet PO SCH (07:52)
[2016-05-16] MEDS: Insulin LISPRO 300 UNITS/3 ML VIAL SQ SCH ×5 (07:53→20:43)
[2016-05-16] MEDS ORDERED: Cosyntropin 250 MCG/2 ML VIAL IVP ONE (08:17)
--- NOTE | 2016-05-16 11:55 | Gastroenterology Consult Note ---
<Kai García - Last Filed: 05/16/16 11:50> Date of Encounter: 05/16/16 Time of Encounter: 10:30 - Assessment and plan (1) Chest pain Current Visit: Yes Status: Acute Assessment and plan: Right sided chest pain. Chest CTA, CXR, and CT A/P were negative. Qualifiers: Chest pain type: other chest pain Qualified Code(s): R07.89 - Other chest pain; R07.8 - Other chest pain (2) LFT elevation Current Visit: Yes Status: Acute Assessment and plan: TB normal at 0.9. AST 395, ALT 565, alk phos 282. Hepatitis profile negative. CT A/P negative. Complete MRCP. (3) Noncompliance with medication regimen Current Visit: Yes Status: Acute (4) Uncontrolled type 2 diabetes mellitus Current Visit: Yes Status: Chronic Qualifiers: Diabetes mellitus complication status: with hyperglycemia Diabetes mellitus exterminator helper termite insulin use: without long-term use Qualified Code(s): E11.65 - Type 2 diabetes mellitus with hyperglycemia - Time Spent With Patient Total time spent is greater than 50% in coordination of care (as documented) at patient's floor/unit and/or counseling patient: GI History of Present Illness - Data of Consult Patient: new to practice Consult date: 05/16/16 Requesting Physician: Chika Carson - Consult Narrative Reason for consult: Increased LFT, RUQ pain History of present illness: Mr. Gonzales is a 56 year old male with PMHx of HTN and DM who presented to the ED with right-sided flank pain from axilla to bottom of ribs, described as sharp. Stretching his right arm over his head and Tramadol improved the pain. He denies headaches, palpitations, abdominal pain, diarrhea, melena, or hematochezia. CXR, CT A/P, CTA showed no acute abnormality. Troponins negative x 3. LFTs were elevate on admission with AST 93, ALT 123, and alk phos 154. Today, AST 395, ALT 565, and alk phos 282. Procedures: Colonoscopy 04/25/2010 Dr. Roblero with diverticulosis in the sigmoid colon. EGD 04/25/2010 Dr. Roblero as gastritis EGD 03/06/2010 Dr. Roblero medium-size ulcerating mass with no bleeding and with no stigmata of recent bleeding were found in the lower third of the esophagus, pathology with Ortiz's esophagus. NSAIDs: ASA Anticoagulation: None Past Med Surg Social Fam HX - Past Medical History Medical history: diabetes, hypertension, other Psychiatric history: no psych history - Past Surgical History Surgical History: cholecystectomy - Social History Smoking Status: Never smoker Smokeless Tobacco Status: No Alcohol use: none Drug use: none - Family History Father Living Status: Hx Family Cardiac Disorders: Yes (heart valve) Hx Family Endocrine Disorder: Yes (diabetes) Mother Living Status: Hx Family Cardiac Disorders: Yes - Gastrointestinal Gastrointestinal: Present: as per HPI - Constitutional Constitutional: as per HPI - EENT Eyes: as per HPI Ears: Present: as per HPI Nose, mouth and throat: Present: as per HPI - Cardiovascular Cardiovascular ROS: Present: as per HPI - Respiratory Respiratory IM: Present: as per HPI - Genitourinary Genitourinary: Absent: change in color, Urinary frequency - Neurological ROS Neurological GI: Present: as per HPI - Hematologic/Lymphatic Hematologic/Lymphatic pediatric: Present: as per HPI - Musculoskeletal Musculoskeletal ROS GI: Present: as per HPI - Integumentary Integumentary GI: Present: as per HPI - Psychiatric ROS Psychiatric GI: Present: as per HPI - Endocrine Endocrine IM: Present: as per HPI - Constitutional Vitals: Temp Pulse Resp BP Pulse Ox 98.2 F 84 16 132/80 94 L 05/16/16 10:51 05/16/16 10:51 05/16/16 10:51 05/16/16 10:51 05/16/16 10:51 General appearance: Present: cooperative, A&O X 3, no acute distress, answers questions appropriately - Head Head exam: Present: atraumatic, normocephalic - Eye Eye exam: Present: normal appearance, sclera anicteric - ENT ENT exam: Present: mucous membranes moist - Neck Neck exam general surgery: Present: normal inspection, trachea midline - Respiratory Respiratory exam: Present: chest wall tenderness (right), CTAB. Absent: rales, rhonchi - Cardiovascular Cardiovascular exam: Present: RRR, +S1, +S2 - GI/Abdominal GI/Abdominal exam: Present: soft, no peritoneal signs. Absent: distended, firm , guarding, tenderness - Rectal Rectal exam: Present: deferred - Extremities Exam Extremities exam: Present: warm - Neurological Exam Neurological exam: Present: no focal deficits - Psychiatric Psychiatric exam: Present: normal affect, normal mood - Skin Skin exam: Present: dry, intact, normal color, warm Results - Labs CBC & Chem 7: 05/15/16 04:06 05/15/16 04:06 Labs: Last Result Calcium 8.4 mg/dL (8.6-10.8) L 05/15/16 04:06 Iron 76 mcg/dL (65-175) 05/16/16 09:20 % Saturation 22 % (20-55) 05/16/16 09:20 Transferrin 242 mg/dL (174-364) 05/16/16 09:20 Ferritin 380 ng/ml (22-275) H 05/16/16 09:20 Troponin I 0.01 ng/mL (0-0.03) 05/15/16 04:06 Triglycerides 285 mg/dL (< 150) H 05/16/16 04:09 Entire Visit Hgb 14.2 g/dL (12.9-16.9) 05/15/16 04:06 Hct 41.1 % (37.5-50.1) 05/15/16 04:06 PT 10.1 Seconds (9.4-12.1) 05/14/16 15:52 Ferritin 380 ng/ml (22-275) H 05/16/16 09:20 Total Bilirubin 0.9 mg/dL (0.2-1.2) 05/16/16 04:09 AST 395 Units/L (5-34) H 05/16/16 04:09 ALT 565 Units/L (0-55) H 05/16/16 04:09 Lipase 52 Units/L (8-78) 05/14/16 16:25 - ABG ABG results: PT/INR, D-dimer PT 10.1 Seconds (9.4-12.1) 05/14/16 15:52 Consult Discharge Plan - Plan Instructions: Magnetic Resonance Cholangiopancreatography (DC) Referrals: NO,PCP [Primary Care Provider] - <Godfrey Cabral - Last Filed: 05/16/16 21:07> Date of Encounter: 05/16/16 Time of Encounter: 17:30 - Time Spent With Patient Total time spent is greater than 50% in coordination of care (as documented) at patient's floor/unit and/or counseling patient: GI History of Present Illness - Data of Consult Requesting Physician: Chika Carson - Consult Narrative History of present illness: Mr. Gonzales is a 56 year old male - Constitutional Vitals: Temp Pulse Resp BP Pulse Ox 97.9 F 102 16 153/79 95 05/16/16 18:52 05/16/16 18:52 05/16/16 18:52 05/16/16 18:52 05/16/16 18:52 Results - Labs CBC & Chem 7: 05/15/16 04:06 05/15/16 04:06 Labs: Last Result Calcium 8.4 mg/dL (8.6-10.8) L 05/15/16 04:06 Iron 76 mcg/dL (65-175) 05/16/16 09:20 % Saturation 22 % (20-55) 05/16/16 09:20 Transferrin 242 mg/dL (174-364) 05/16/16 09:20 Ferritin 380 ng/ml (22-275) H 05/16/16 09:20 Troponin I 0.01 ng/mL (0-0.03) 05/15/16 04:06 Triglycerides 285 mg/dL (< 150) H 05/16/16 04:09 Entire Visit Hgb 14.2 g/dL (12.9-16.9) 05/15/16 04:06 Hct 41.1 % (37.5-50.1) 05/15/16 04:06 PT 10.1 Seconds (9.4-12.1) 05/14/16 15:52 Ferritin 380 ng/ml (22-275) H 05/16/16 09:20 Total Bilirubin 0.9 mg/dL (0.2-1.2) 05/16/16 04:09 AST 395 Units/L (5-34) H 05/16/16 04:09 ALT 565 Units/L (0-55) H 05/16/16 04:09 Lipase 52 Units/L (8-78) 05/14/16 16:25 - ABG ABG results: PT/INR, D-dimer PT 10.1 Seconds (9.4-12.1) 05/14/16 15:52 - Attending Attestation I examined this patient and my medical decision-making was reviewed with the BLUE LINE TRIMMER/PA/Advanced Practice Nurse/Resident Physician. I agree with the documented findings, disposition and treatment plan as described except to the extent set forth below. Pt sen RUQ pain most prob due to hepatitis. MRI/CT negtive, hep panel neg.
[2016-05-16 12:08] LABS: Thyroid Stimulating Hormone 1.299 mcIU/mL (0.350-4.840)
--- NOTE | 2016-05-16 12:10 | Internal Med Progress Note ---
Date of Encounter: 05/16/16 Time of Encounter: 09:30 - Assessment and plan (1) Chest pain Current Visit: Yes Status: Acute Assessment and plan: Patient complaining of severe right-sided chest pain radiating to his right upper back. Chest x-ray unremarkable. Chest CTA negative for acute processes. Abdominal CT negative. Urinalysis negative. Hepatitis panel negative. Transaminitis noted and trended up since admission. Unclear causation- lipase normal so less likely to be pancreatitis. Bilirubin normal. GI onboard- MRCP pending. Will continue with pain and nausea control- stool softener added as well. Troponins negative 3, low suspicion for ACS. ITS Impressions Chest X-Ray 05/14/16 15:37 IMPRESSION: No acute abnormality. D/ / Homer Betts MD / Homer Betts MD Interpreting Provider: Homer Betts MD Chest CTA 05/14/16 16:40 IMPRESSION: No evidence of pulmonary embolism or acute pulmonary abnormality. D/ / Fabio Carrillo MD / Fabio Carrillo MD Interpreting Provider: Fabio Carrillo MD Abdomen/Pelvis CT 05/14/16 18:16 IMPRESSION: No acute intra-abdominal or intrapelvic abnormality. Diverticulosis without evidence of diverticulitis. D/ / Luz Marina Adan MD / Luz Marina Adan MD Interpreting Provider: Luz Marina Adan MD (2) Intractable pain Current Visit: Yes Status: Acute (3) Transaminitis Current Visit: Yes Status: Acute (4) HTN (hypertension) Current Visit: Yes Status: Acute Assessment and plan: Suspect chronic, patient does not know if he was supposed to be on any medications for his hypertension, lisinopril was initiated yesterday however the patient remains hypertensive this morning so metoprolol was added to his regimen. We will continue to trend and adjust medications as indicated. Also addressing his severe pain. (5) Noncompliance with medication regimen Current Visit: Yes Status: Acute Assessment and plan: Patient stating he stopped taking all of his medications approximately 6 months ago. He has not seen a primary care provider for at least 8 months. He states he had heard bad things about his medications so he stopped taking them. He is also unintentionally lost 20 pounds over the past several months. (6) DVT prophylaxis Current Visit: Yes Status: Acute Assessment and plan: Subcutaneous Lovenox (7) Uncontrolled type 2 diabetes mellitus Current Visit: Yes Status: Chronic Assessment and plan: patient stating he was on Metformin, but had heard some bad things about it, so he stopped taking it approximately 6 months ago. A1C>14.1%. DM educator onboard. He does not currently have a PCP. May need to initiate insulin, will continue to educate him and decide plan of care over next several days. Glucoses are better controlled today, continue low-dose sliding scale - Subjective Interval history: Patient seen and examined. On examination, patient resting supine in bed. Patient continued to complain of severe right-sided chest pain radiating around to his back. He states it is knifelike in nature and states pain medicine has not been overtly effective and states he is trying to sleep more and more because his pain and nausea are severe. - Constitutional Vitals: Temp Pulse Resp BP Pulse Ox 98.2 F 84 16 132/80 94 L 05/16/16 10:51 05/16/16 10:51 05/16/16 10:51 05/16/16 10:51 05/16/16 10:51 General appearance: Present: mild distress (2/2 pain), A&O X 3, no acute distress, answers questions appropriately - Head Head exam: Present: atraumatic, normocephalic - Eye Eye exam: Present: PERRL, conjuntiva pink, sclera anicteric Pupils: Present: PERRL - Neck Neck exam general surgery: Present: supple, trachea midline. Absent: lymphadenopathy - Respiratory Respiratory exam: Present: chest wall tenderness. Absent: accessory muscle use , rales, respiratory distress, rhonchi, wheezes - Cardiovascular Cardiovascular exam: Present: RRR, +S1, +S2. Absent: diastolic murmur, gallop, rubs, systolic murmur - GI/Abdominal GI/Abdominal exam: Present: normal bowel sounds, soft, no peritoneal signs. Absent: distended, tenderness - Extremities Exam Extremities exam: Present: warm, radial pulses palpable and symetrical. Absent : calf tenderness, cyanotic, pedal edema - Neurological Exam Neurological exam: Present: alert, CN II-XII intact, oriented X3, no focal deficits, strengths equal and symetr throughout. Absent: pronater drift, facial droop, speech deficit - Skin Skin exam: Present: dry, intact, pallor, warm Internal Medicine: Result - Labs CBC & Chem 7: 05/15/16 04:06 05/15/16 04:06 Labs: Liver Function 05/16/16 Range/Units 09:20 GGT 691 H (12-64) Units/L - ABG Interpretation ABG results: PT/INR, D-dimer PT 10.1 Seconds (9.4-12.1) 05/14/16 15:52 Consult Discharge Plan - Plan Instructions: Magnetic Resonance Cholangiopancreatography (DC) Referrals: NO,PCP [Primary Care Provider] -
[2016-05-17] MEDS: Ondansetron 4 MG/2 ML VIAL IVP PRN (02:26)
[2016-05-17] MEDS: *HR* HYDROmorphone (PF) 1 MG/ML SYRINGE IVP PRN ×2 (02:26→06:41)
[2016-05-17] MEDS: 0.9 % Sodium Chloride 1,000 ML IVC SCH ×5 (02:27→23:00)
[2016-05-17 05:45] LABS: Basophils % 0.8 %; Eosinophils # 0.2 K/mcL (0.0-0.6); Eosinophils % 3.8 %; Hematocrit 40.1 % (37.5-50.1); Hemoglobin 13.1 g/dL (12.9-16.9); Immature Granulocytes % 1.7 % (0-4); Lymphocytes # 1.6 K/mcL (0.6-4.6); Mean Corpuscular HGB Conc 32.7 g/dL (31.6-35.5); Mean Corpuscular Hemoglobin 28.1 pg (28.0-33.3); Mean Corpuscular Volume 85.9 fL (83.0-100.0); Mean Platelet Volume 10.7 fL (9.4-12.4); Monocytes # 0.5 K/mcL (0.0-1.3); Monocytes % 9.6 %; Neutrophils # 2.4 K/mcL (1.6-8.9); Platelet Count 281 K/mcL (140-400); Red Blood Count 4.67 M/mcL (4.19-5.50); Red Cell Distribution Width 13.7 % (11.5-14.5); Segmented Neutrophils % 50.1 %
[2016-05-17 06:02] LABS: Alanine Aminotransferase 365 Units/L (0-55); Albumin 2.9 g/dL (3.5-5.0); Albumin/Globulin Ratio 0.9 (1.1-2.2); Alkaline Phosphatase 259 Units/L (38-126); Aspartate Amino Transferase 120 Units/L (5-34); BUN/Creatinine Ratio 10 (6-26); Bilirubin,Direct 0.2 mg/dL (0.0-0.5); Bilirubin,Indirect 0.5 mg/dL (0.0-1.2); Bilirubin,Total 0.7 mg/dL (0.2-1.2); Blood Urea Nitrogen 8 mg/dL (8-26); Calcium 8.5 mg/dL (8.6-10.8); Carbon Dioxide 21 mEq/L (19-29); Chloride 108 mEq/L (98-109); Globulin 3.2 g/dL (2.4-3.5); Glucose 286 mg/dL (70-99); Osmolality,Calculated 295 (280-300); Sodium 138 mEq/L (136-145); Total Protein 6.1 g/dL (6.0-8.3); eGFR For African Americans > 60 (> 60); eGFR For Non-African Americans > 60 (> 60)
[2016-05-17 06:18] LABS: Potassium 3.6 mEq/L (3.5-4.5)
[2016-05-17] MEDS: *HR* Enoxaparin 40 MG/0.4 ML SYRINGE SQ SCH (06:40)
[2016-05-17] MEDS: *HR* Promethazine 25 MG/ML VIAL IVP PRN (06:41)
[2016-05-17] MEDS: Aspirin Enteric Coated 81 MG Tablet PO SCH (08:12)
[2016-05-17] MEDS: Insulin LISPRO 300 UNITS/3 ML VIAL SQ SCH ×3 (08:15→16:45)
[2016-05-17] MEDS: *HR* HYDROcodone/Acet 5/325 mg TABLET PO PRN (09:58)
[2016-05-17] MEDS ORDERED: Insulin DETEMIR 100 UNIT/ML X5UNITS SQ SCH (12:08)
[2016-05-17] MEDS ORDERED: Insulin DETEMIR 100 UNIT/ML X5UNITS SQ ONE (12:21)
--- NOTE | 2016-05-17 13:02 | Internal Med Progress Note ---
Date of Encounter: 05/17/16 Time of Encounter: 12:48 - Assessment and plan (1) Uncontrolled type 2 diabetes mellitus Current Visit: Yes Status: Chronic Assessment and plan: Given persistent hyperglycemia and HbA1C>14, will start Levemir Since patient is insulin naive, will start with Levemir 18units qd (0.2mg/kg) Continue Insulin sliding scale algorithm as needed Continue to monitor fingerstick and blood glucose Field Contact Person counseling provided, patient demonstrates understanding and agrees to using insulin after discharge. Qualifiers: Diabetes mellitus complication status: with hyperglycemia Diabetes mellitus intermodal dispatcher insulin use: without intermodal dispatcher use Qualified Code(s): E11.65 - Type 2 diabetes mellitus with hyperglycemia (2) HTN (hypertension) Current Visit: Yes Status: Acute Assessment and plan: BP within acceptable range will continue Lisinopril and Metoprolol at this time. continue to monitor BP Qualifiers: Hypertension type: unspecified secondary hypertension Qualified Code(s): I15.9 - Secondary hypertension, unspecified; I15 - Secondary hypertension (3) Transaminitis Current Visit: Yes Status: Acute Assessment and plan: GI eval appreciated with LFTs trending down MRCP unremarkable will continue to monitor Will advance diet to ADA patient encouraged to get out of bed to chair and ambulate more while hospitalized (4) Intractable pain Current Visit: Yes Status: Acute Assessment and plan: Diffuse chest pain of unclear etiology Can be secondary to the flu patient had a few days prior to hospitalization Will titrate pain medications d/c Dilaudid continue hydrocodone q6h prn phenergan prn n/v d/c zofran (5) DVT prophylaxis Current Visit: Yes Status: Acute Assessment and plan: Lovenox SQ - Subjective Interval history: Patient seen and examined at bedside. Patient states he has not achieved complete resolution of pain since his admission, however as per the nursing staff patient appears to be resting comfortably in bed and sleeping comfortably after receiving his pain medications. I had a detailed discussion with the patient in regards to his management plan. He is in agreement of not using any more Dilaudid and only using one antiemetic agent at this time. He is willing to be compliant with his insulin regimen. 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 Patient will benefit from outpatient follow up with pulmonology and undergo Pulmonary function testing. - Constitutional Vitals: Temp Pulse Resp BP Pulse Ox 98.1 F 65 16 126/85 97 05/17/16 11:31 05/17/16 11:31 05/17/16 11:31 05/17/16 11:31 05/17/16 11:31 General appearance: Present: A&O X 3, no acute distress, obese, answers questions appropriately - Head Head exam: Present: atraumatic, normocephalic - Eye Eye exam: Present: conjuntiva pink, sclera anicteric - Respiratory Respiratory exam: Present: CTAB. Absent: respiratory distress, wheezes - Cardiovascular Cardiovascular exam: Present: RRR, +S1, +S2 - GI/Abdominal GI/Abdominal exam: Present: distended (obese), normal bowel sounds, soft, no peritoneal signs. Absent: tenderness - Extremities Exam Extremities exam: Present: warm, radial pulses palpable and symetrical. Absent : calf tenderness, pedal edema - Neurological Exam Neurological exam: Present: alert, oriented X3, no focal deficits - Psychiatric Psychiatric exam: Present: normal affect, normal mood Internal Medicine: Result - Labs CBC & Chem 7: 05/17/16 04:01 05/17/16 04:01 Labs: Short CBC 05/17/16 Range/Units 04:01 WBC 4.8 (4.3-11.1) K/mcL Hgb 13.1 (12.9-16.9) g/dL Hct 40.1 (37.5-50.1) % Plt Count 281 (140-400) K/mcL Neutrophils # 2.4 (1.6-8.9) K/mcL BMP 05/17/16 04:01 Sodium 138 Potassium 3.6 Chloride 108 Carbon Dioxide 21 BUN 8 Creatinine 0.77 Glucose 286 H Calcium 8.5 L Liver Function 05/17/16 Range/Units 04:01 Total Bilirubin 0.7 (0.2-1.2) mg/dL Direct Bilirubin 0.2 (0.0-0.5) mg/dL AST 120 H (5-34) Units/L ALT 365 H (0-55) Units/L Alkaline Phosphatase 259 H (38-126) Units/L Albumin 2.9 L (3.5-5.0) g/dL - ABG Interpretation ABG results: PT/INR, D-dimer PT 10.1 Seconds (9.4-12.1) 05/14/16 15:52 Consult Discharge Plan - Plan Instructions: Magnetic Resonance Cholangiopancreatography (DC) Referrals: NO,PCP [Primary Care Provider] -
[2016-05-17] MEDS ORDERED: MOM Conc 10 ML UD.LIQ PO ONE (13:10)
[2016-05-17] MEDS: Pantoprazole 40 MG VIAL IVP SCH (13:17)
[2016-05-17] MEDS: *HR* HYDROcodone/Acet 7.5/325 mg TABLET PO PRN ×2 (16:47→23:28)
[2016-05-17] MEDS ORDERED: Insulin LISPRO 300 UNITS/3 ML VIAL SQ SCH (21:00)
[2016-05-17] MEDS: Sennosides/Docusate Sodium TABLET PO SCH (21:30)
[2016-05-18] MEDS: *HR* Promethazine 25 MG/ML VIAL IVP PRN (04:23)
[2016-05-18 05:33] LABS: Basophils % 0.6 %; Eosinophils # 0.2 K/mcL (0.0-0.6); Hemoglobin 13.6 g/dL (12.9-16.9); Immature Granulocytes % 1.3 % (0-4); Lymphocytes # 1.9 K/mcL (0.6-4.6); Lymphocytes % 39.2 %; Mean Corpuscular Hemoglobin 29.1 pg (28.0-33.3); Mean Corpuscular Volume 85.5 fL (83.0-100.0); Mean Platelet Volume 10.8 fL (9.4-12.4); Monocytes # 0.4 K/mcL (0.0-1.3); Neutrophils # 2.2 K/mcL (1.6-8.9); Platelet Count 294 K/mcL (140-400); Red Blood Count 4.68 M/mcL (4.19-5.50); Red Cell Distribution Width 13.3 % (11.5-14.5); Segmented Neutrophils % 45.9 %
[2016-05-18 05:41] LABS: Alanine Aminotransferase 259 Units/L (0-55); Albumin 2.8 g/dL (3.5-5.0); Albumin/Globulin Ratio 0.8 (1.1-2.2); Alkaline Phosphatase 255 Units/L (38-126); Aspartate Amino Transferase 57 Units/L (5-34); BUN/Creatinine Ratio 7 (6-26); Bilirubin,Direct 0.3 mg/dL (0.0-0.5); Bilirubin,Indirect 0.3 mg/dL (0.0-1.2); Bilirubin,Total 0.6 mg/dL (0.2-1.2); Blood Urea Nitrogen 6 mg/dL (8-26); Calcium 8.4 mg/dL (8.6-10.8); Carbon Dioxide 26 mEq/L (19-29); Chloride 106 mEq/L (98-109); Globulin 3.4 g/dL (2.4-3.5); Glucose 189 mg/dL (70-99); Magnesium 1.4 mg/dL (1.6-2.6); Osmolality,Calculated 297 (280-300); Phosphorous 2.8 mg/dL (2.3-4.7); Potassium 3.5 mEq/L (3.5-4.5); Sodium 142 mEq/L (136-145); Total Protein 6.2 g/dL (6.0-8.3); eGFR For African Americans > 60 (> 60); eGFR For Non-African Americans > 60 (> 60)
[2016-05-18] MEDS: *HR* Enoxaparin 40 MG/0.4 ML SYRINGE SQ SCH (05:58)
[2016-05-18] MEDS: 0.9 % Sodium Chloride 1,000 ML IVC SCH (06:00)
[2016-05-18] MEDS: *HR* HYDROcodone/Acet 7.5/325 mg TABLET PO PRN (07:42)
[2016-05-18] MEDS: Pantoprazole 40 MG VIAL IVP SCH (07:42)
[2016-05-18] MEDS: Aspirin Enteric Coated 81 MG Tablet PO SCH (07:42)
[2016-05-18] MEDS: Sennosides/Docusate Sodium TABLET PO SCH (07:42)
[2016-05-18] MEDS ORDERED: Magnesium Sulfate 2 GM in D5% in Water 100 ML IVPB ONE (08:02)
[2016-05-18] MEDS: Insulin LISPRO 300 UNITS/3 ML VIAL SQ SCH ×2 (08:18→11:41)
[2016-05-18] MEDS ORDERED: Insulin DETEMIR 100 UNIT/ML X5UNITS SQ SCH (09:00)
[2016-05-18 11:15] VITALS: BP 152/85
--- NOTE | 2016-05-18 12:51 | Discharge Summary ---
Date of Encounter: 05/18/16 Time of Encounter: 12:44 - Discharge Diagnosis (1) Uncontrolled type 2 diabetes mellitus Priority: Primary Status: Chronic Qualifiers: Diabetes mellitus complication status: with hyperglycemia Diabetes mellitus rat exterminator insulin use: without rat exterminator use Qualified Code(s): E11.65 - Type 2 diabetes mellitus with hyperglycemia (2) HTN (hypertension) Priority: Secondary Status: Chronic Qualifiers: Hypertension type: unspecified secondary hypertension Qualified Code(s): I15.9 - Secondary hypertension, unspecified; I15 - Secondary hypertension (3) Transaminitis Priority: Secondary Status: Acute (4) Intractable pain Priority: Primary Status: Acute (5) DVT prophylaxis Priority: Secondary Status: Acute - Discharge Medications Prescriptions: Insulin DETEMIR [Levemir Flextouch] 18 unit SQ DAILY #2 insuln.pen Lisinopril [Zestril] 10 mg PO DAILY #30 tablet Metformin HCl [Fortamet] 500 mg PO Q12H #30 tab.er.24 Metoprolol [Lopressor] 12.5 mg PO BID #60 tablet Home Medications: Aspirin Enteric Coated [Aspirin EC] 81 mg PO DAILY 05/14/16 [History] Insulin DETEMIR [Levemir Flextouch] 18 unit SQ DAILY #2 insuln.pen 05/18/16 [Rx] Lisinopril [Zestril] 10 mg PO DAILY #30 tablet 05/18/16 [Rx] Metformin HCl [Fortamet] 500 mg PO Q12H #30 tab.er.24 05/18/16 [Rx] Metoprolol [Lopressor] 12.5 mg PO BID #60 tablet 05/18/16 [Rx] Allergies/Adverse Reactions: Allergies No Known Allergies Allergy (Verified 05/14/16 14:50) Date of admission: 05/16/16 08:50 Primary care physician: PCP NO Consults: GI: Dr. Cabral Discharging clinician: Ana Rodriguez Anticipated date of discharge: 05/18/16 - Patient Status Disposition: Home, Self-Care Condition: Good Functional capacity at discharge: independent ambulation Overall status at discharge: patient is back to baseline - Discharge Instructions Instructions: Diabetes Mellitus Type 2 in Adults (DC), Basic Carbohydrate Counting (DC), Meal Planning with the Plate Model (DC), Meal Planning with Diabetes Exchanges (DC), Meal Planning with Diabetes Exchanges (GEN) Follow Up With: Bebo Harrington, JAMES [Advanced Practice Nurse] - 05/28/16 10:00 am (You will be recieving a new patient packet in the mail please bring it with you to your appointment with your Photo ID, insurance card and medications list. Please cancel if you are unable to make it. ) Additional Instructions: Please follow up with your primary care physician within one week after your discharge from the hospital. Please ask your primary care physician about a front end software engineer referral and look into getting Pulmonary function test as outpatient. Please follow up with blood typer within one to two weeks after your discharge from the hospital. Please take all your home medications as prescribed. Medication compliance is extremely important. In addition to Insulin, Lisinopril, and Metoprolol; Metformin has been added to your home medications. Please inform your primary care physician about these changes. Please closely monitor your fingerstick glucose 4 times a day (fasting, once before meals, once two hours after meals, and before bedtime). Please record these readings and take them with your to your primary care physician's appointment. Your insulin therapy will be further adjusted as per these readings. Please seek medical help if you are persistently seeing readings above 200. Please adhere to a strict diabetic diet. Hospital course: Mr. Gonzales is a 56 year old male with med noncompliance, hypertension, and diabetes who was admitted for management of nonspecific right sided chest pain. Patient was noted to be off all his home medications for the last six months. His A1C was noted to be above 14. Full ACS work up was done and ACS was ruled out. Patient was also noted to have elevated transaminases for which GI was consulted. He had a MRCP which was unremarkable and patient's transaminases have been trending down. Pt was also counselled about med compliance and a community nutrition educator counselling was also provided. Patient was started on Levemir with better control of his blood glucose. He was educated about insulin use and demonstrated understanding on how to use the insulin therapy. 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 He states his chest pain never improved despite all the medications and treatments given. At this time he appears to be clinically stable. He is hemodynamically stable and will be discharged to home with follow up with PCP and GI. - Time Spent with Patient Total time spent providing and/or coordinating discharge services: Greater than 30 minutes - Constitutional Vitals: Temp Pulse Resp BP Pulse Ox 98.2 F 70 16 152/85 94 L 05/18/16 11:14 05/18/16 11:14 05/18/16 11:14 05/18/16 11:14 05/18/16 11:14 General appearance: Present: A&O X 3, no acute distress, obese, answers questions appropriately - Head Head exam: Present: atraumatic, normocephalic - Eye Eye exam: Present: conjuntiva pink, sclera anicteric - Respiratory Respiratory exam: Present: CTAB. Absent: respiratory distress, wheezes - Cardiovascular Cardiovascular exam: Present: RRR, +S1, +S2. Absent: diastolic murmur, systolic murmur - GI/Abdominal GI/Abdominal exam: Present: normal bowel sounds, soft. Absent: distended, tenderness - Extremities Exam Extremities exam: Present: warm, radial pulses palpable and symetrical. Absent : calf tenderness, cyanotic, pedal edema - Neurological Exam Neurological exam: Present: alert, oriented X3 - Psychiatric Psychiatric exam: Present: normal affect, normal mood
== END 2016-05-18 14:30 | disposition home or self-care (01) | DRG 639 ==
LOC: 3BNU 14:35 → EMEROO 14:35 → 3BNU 22:13 → SUATTDRO 05-16 08:50
PROVIDERS: ADMIT Internal Medicine; ATTEND Internal Medicine